=== PATIENT | male | born 1985 | race American Indian/Alaskan Native ===

== ENCOUNTER 2021-02-09 00:16 | Emergency (ER) | payer OTHER ==
--- NOTE | 2021-02-09 00:28 | Emergency Department Report ---
ED Lower Extremity HPI - General Chief Complaint: Extremity Injury, Lower Stated Complaint: LEFT FOOT INJURY Time Seen by Provider: 02/09/21 00:27 Source: patient, RN notes reviewed Mode of arrival: Ambulatory Limitations: Physical Limitation - History of Present Illness Initial Comments: The patient is a pleasant and cooperative 35-year-old gentleman, who is not known to myself previously, who presents to the ER with accidental crush injury of the left foot, which happened just prior to arrival. 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 He denies additional injuries and complaints. He has sharp throbbing aching pain, which increases with palpation and decreases with rest. No add itional injuries. No additional complaints. MD Complaint: foot injury -: Sudden, This morning Injury: Foot: Left Type of Injury: blunt Place: work Severity: moderate Improves With: rest Worsens With: movement, palpation Context: other (Crush injury) Associated Symptoms: swelling - Related Data Previous Rx's Medication Instructions Recorded Last Taken Type Acetaminophen [Non-Aspirin Extra 650 mg PO Q6HR PRN #30 tablet 02/09/21 Unknown Rx Strength] Ibuprofen [Motrin] 600 mg PO Q8H PRN #30 tablet 02/09/21 Unknown Rx Allergies Allergy/AdvReac Type Severity Reaction Status Date / Time No Known Allergies Allergy Unverified 02/09/21 00:18 ED Review of Systems ROS: Stated complaint: LEFT FOOT INJURY Other details as noted in HPI Constitutional: denies: fever Eyes: denies: eye discharge ENT: denies: epistaxis Respiratory: denies: cough Cardiovascular: denies: chest pain Musculoskeletal: arthralgia, myalgia Neurological: denies: weakness ED Past Medical Hx - Past Medical History Previous Medical History?: No - Surgical History Past Surgical History?: No - Medications Home Medications: Home Medications Medication Instructions Recorded Confirmed Last Taken Type Acetaminophen [Non-Aspirin Extra 650 mg PO Q6HR PRN #30 tablet 02/09/21 Unknown Rx Strength] Ibuprofen [Motrin] 600 mg PO Q8H PRN #30 tablet 02/09/21 Unknown Rx ED Physical Exam - General Limitations: Physical Limitation General appearance: alert, in no apparent distress - Head Head exam: Present: atraumatic, normocephalic - Eye Eye exam: Present: normal appearance, EOMI. Absent: nystagmus - ENT ENT exam: Present: normal exam, normal orophraynx, mucous membranes moist, normal external ear exam - Neck Neck exam: Present: normal inspection, full ROM. Absent: tenderness, meningismus - Respiratory Respiratory exam: Present: normal lung sounds bilaterally. Absent: respiratory distress, wheezes, rales, rhonchi, stridor, decreased breath sounds - Cardiovascular Cardiovascular Exam: Present: regular rate, normal rhythm, normal heart sounds. Absent: bradycardia, tachycardia, irregular rhythm, systolic murmur, diastolic murmur, rubs, gallop - GI/Abdominal GI/Abdominal exam: Present: soft. Absent: distended, tenderness, guarding, rebound, rigid, pulsatile mass - Rectal Rectal exam: Present: deferred - Extremities Exam Extremities exam: Present: full ROM, tenderness (There is left lateral and dorsal foot tenderness. The plantar aspect of the left foot is nontender. The medial left foot is nontender. The Barton test is functionally intact.), other (2+ pulses noted in the bilateral upper extremities and left lower extremity. There is no long bony tenderness in the right lower extremity, or bilateral upper extremities. The pelvis is stable. The left lower extremity is nontender, with the exception of the left lateral aspect of the foot). Absent: pedal edema, calf tenderness - Back Exam Back exam: Present: normal inspection. Absent: tenderness, CVA tenderness (R), CVA tenderness (L), paraspinal tenderness, vertebral tenderness - Neurological Exam Neurological exam: Present: alert, oriented X3, other (No facial droop. Tongue midline. Extraocular movements intact bilaterally. Facial sensation intact to light touch in V1, V2, V3 distribution bilaterally. 5 and a 5 strength in 4 extremities. Sensation intact to light touch in 4 extremities.). Absent: motor sensory deficit - Psychiatric Psychiatric exam: Present: anxious - Skin Skin exam: Present: warm, abrasion ED Course Vital Signs 02/09/21 02/09/21 02/09/21 01:04 01:05 02:05 Temperature Pulse Rate 84 Respiratory 18 18 18 Rate Blood Pressure 129/106 [Right] O2 Sat by Pulse 98 Oximetry 02/09/21 02/09/21 02:07 02:39 Temperature 98.2 F Pulse Rate 90 Respiratory Rate Blood Pressure 146/94 [Right] O2 Sat by Pulse Oximetry ED Lower Extremity MDM - Lab Data Vital Signs 02/09/21 02/09/21 01:04 01:05 Respiratory 18 18 Rate Vital Signs 02/09/21 02/09/21 02/09/21 01:04 01:05 02:05 Pulse Rate 84 Respiratory 18 18 18 Rate Blood Pressure 129/106 [Right] O2 Sat by Pulse 98 Oximetry - Radiology Data Radiology results: pending, report reviewed, image reviewed Left foot, 3 views HISTORY: Injury COMPARISON: None FINDINGS: Great toe bunion deformity with metatarsus primus varus and hallux valgus. No significant arthritis. No acute fracture or malalignment. No focal soft tissue abnormality. Signer Name: Rolan Dawkins MD Signed: 02/08/2021 11:55 PM Workstation Name: [id number] - Medical Decision Making Differential diagnosis, including but not limited to: Sprain, strain, fracture, dislocation, crush injury Assessment and plan: 35-year-old gentleman, who works at a factory, with left foot crush injury. This is an isolated injury. He is neurovascularly intact. Muscular compartments are soft. There is no laceration. X-ray shows no fracture or dislocation. Extensively counseled to follow-up with Worker's Compensation physician, and supervisor power reactor. Nonweightbearing, hard soled shoe, crutches, Tylenol and Motrin. Outpatient follow-up with podiatry, Worker's Compensation physician. Discussed this extensively. All questions answered. Return precautions are reviewed. Critical care attestation.: If time is entered above; I have spent that time in minutes in the direct care of this critically ill patient, excluding procedure time. ED Disposition Clinical Impression: Crush injury of left foot Qualifiers: Encounter type: initial encounter Qualified Code(s): S97.82XA - Crushing injury of left foot, initial encounter Disposition: HOME / SELF CARE / HOMELESS Is pt being admited?: No Does the pt Need Aspirin: No Condition: Stable Instructions: Crush Injury of the Foot, [id number] Additional Instructions: We advised that the patient remain nonweightbearing on the left lower extremity, until cleared to bear weight on the left foot/left lower extremity by primary c are physician, auto parts delivery driver, orthopedist, or Worker's Compensation physician. We recommend follow-up with primary care, podiatry, orthopedics or Worker's Compensation physician within the next 2 to 4 days for repeat checkup and evaluation. The patient should contact his immediate work supervisor power reactor on his workspace policy for follow-up with Worker's Compensation physician, and Worker's Compensation injuries. Please take the pain medications as needed and directed. Dr. Whittaker is a local orthopedic surgeon. Dr. Solo is a local auto parts delivery driver. [facility] is a local orthopedic group. The patient may follow-up with any of these providers, however, it is not known if these providers are part of the patient's Worker's Compensation physician program. He will need to follow-up with his employer/supervisor power reactor for clarification. Please return to the emergency room right away with new pain, worsened pain, migration of pain, projectile vomiting, change in mental status, confusion, inab ility tolerate liquid feeds, new, worsened or different symptoms not present on the initial emergency room evaluation Prescriptions: Ibuprofen [Motrin] 600 mg PO Q8H PRN #30 tablet PRN Reason: Pain Acetaminophen [Non-Aspirin Extra Strength] 650 mg PO Q6HR PRN #30 tablet PRN Reason: Pain , Severe (7-10) Referrals: NINA SOLO DPM [Staff Physician] - 3-5 Days [facility] [Provider Group] - 3-5 Days KAREN WHITTAKER MD [Staff Physician] - 3-5 Days Forms: Work/School Release Form(ED)
[2021-02-09] MEDS ORDERED: IBUPROFEN 400 MG TAB PO ONE (00:38)
[2021-02-09] MEDS ORDERED: oxyCODONE /ACETAMINOPHEN 5-325MG TAB PO PRN (00:38)
--- NOTE | 2021-02-09 01:00 | XRay Report ---
Left foot, 3 views HISTORY: Injury COMPARISON: None FINDINGS: Great toe bunion deformity with metatarsus primus varus and hallux valgus. No significant a rthritis. No acute fracture or malalignment. No focal soft tissue abnormality. Signer Name: Rolan Dawkins MD Signed: 02/09/2021 12:55 AM Workstation Name: [id number]
[2021-02-09 02:39] VITALS: BP 146/94
== END 2021-02-09 02:39 | disposition home or self-care (01) ==
LOC: ED 00:16
DX: S97.82XA Crushing injury of left foot, initial encounter (principal); X58.XXXA Exposure to other specified factors, initial encounter; Y93.89 Activity, other specified; Y92.89 Other specified places as the place of occurrence of the external cause; Y99.8 Other external cause status
CPT/HCPCS: 99283